=== PATIENT | female | born 1960 | race African-American/Black ===

== ENCOUNTER 2023-07-25 04:23 | Inpatient (IN) | payer OTHER ==
[2023-07-25] VITALS (8 sets, daily range): BP systolic 122–146; BP diastolic 49–128; PULSE 81–188; RESP 10–42; TEMP 97.8–98; O2SAT 98
[~2023-07-25] VITALS: Ht 162.6 cm; Wt 69.9 kg
[2023-07-25] MEDS: CEFTRIAXONE 1GM PREMIX 50 ML IV ONE (04:56)
[2023-07-25 05:20] LABS: HEMATOCRIT. 34.7 % (36.0-48.0); HEMOGLOBIN. 11.2 g/dL (12.0-16.0); MEAN CORPUSCULAR HEMOGLOBIN 30.2 pg (28.0-32.0); MEAN CORPUSCULAR HGB CONC 32.4 g/dL (31.0-37.0); MEAN CORPUSCULAR VOLUME 93.2 fL (81.0-99.0); MEAN PLATELET VOLUME 10.5 fl (7.4-10.4); PLATELET 86 x1000/uL (130-400); RED BLOOD CELL COUNT 3.72 mill/uL (4.2-5.4); RED CELL DISTRIBUTION WIDTH 17.2 % (11.6-14.6); WHITE BLOOD COUNT 16.7 x1000/uL (4.5-11.0)
[2023-07-25 05:30] LABS: INR 3.3; PROTHROMBIN TIME 33.8 sec (9.6-11.0)
[2023-07-25 05:37] LABS: DIFFERENTIAL COMMENT 1
[2023-07-25 05:59] LABS: BG BASE EXCESS -10.5 mmol/L (-2.0-2.0); BG CARBOXYHEMOGLOBIN 0.4 % (0.5-1.5); BG DEOXYHEMOGLOBIN 0.4 % (0.0-5.0); BG FRACTION INSPIRED OXYGEN 60; BG METHEMOGLOBIN 0.5 % (0.0-1.5); BG OXYGEN SATURATION 99.6 % (92.0-98.5); BG OXYHEMOGLOBIN 98.7 % (94.0-97.0); BG PCO2 27.4 mmHg (35.0-45.0); BG PH 7.325 (7.350-7.450); BG PO2 223.4 mmHg (75.0-100.0); BG SAMPLE SITE RIGHT RADIAL; BG TOTAL HEMOGLOBIN 12.7 g/dL (12.0-18.0); BG TOTAL RESPIRATORY RATE 29 b/min; BG VENT MODE MASK - BIPAP
[2023-07-25 06:08] LABS: LACTIC ACID 10.5 mmol/L (0.4-2.0)
[2023-07-25 06:30] LABS: NUCLEATED RED BLOOD CELLS 1 /100 WBC; PLATELET ESTIMATE DECREASED
[2023-07-25 06:31] LABS: ANISOCYTOSIS 2+
[2023-07-25] MEDS: AZITHROMYCIN 500MG/250ML 250 ML IV NR (07:49)
[2023-07-25 08:24] LABS: ALANINE AMINOTRANSFERASE 506 IU/L (10-49); ALBUMIN 3.7 g/dL (3.2-4.8); ASPARTATE AMINOTRANSFERASE 615 IU/L (<34); BILIRUBIN TOTAL 13.7 mg/dL (0.1-1.0); CALCIUM 9.1 mg/dL (8.7-10.4); CARBON DIOXIDE 11 mEq/L (21-32); CHLORIDE 87 mEq/L (98-107); CREATININE 1.1 mg/dL (0.6-1.0); GLUCOSE 127 mg/dL (70-105); PROTEIN TOTAL 7.2 g/dL (6.0-8.3); UREA NITROGEN BLOOD 56 mg/dL (9-23)
[2023-07-25] MEDS ORDERED: DOCUSATE SODIUM 100MG CAPSULE PO PRN (08:30)
[2023-07-25] MEDS ORDERED: VANCOMYCIN 1.5GM/250ML IV NR (08:30)
[2023-07-25] MEDS ORDERED: GUAIFENESIN 200MG/10ML SUGAR FREE UDC PO PRN (08:30)
[2023-07-25] MEDS ORDERED: ACETAMINOPHEN 650MG/20.3ML UDC GT PRN (08:30)
[2023-07-25] MEDS ORDERED: MAGNESIUM/ALUMINUM HYDROXIDE/SIMETHICONE 30ML UDC PO PRN (08:30)
[2023-07-25] MEDS ORDERED: CLONIDINE 0.1MG TABLET PO PRN (08:30)
[2023-07-25] MEDS ORDERED: IPRATROPIUM/ALBUTEROL 0.5-3(2.5)MG/3ML NEB HHN PRN (08:30)
[2023-07-25] MEDS ORDERED: MEROPENEM 1G/100ML 100 ML IV NR (08:30)
[2023-07-25 08:48] LABS: POTASSIUM 6.3 mEq/L (3.5-5.1); SODIUM 120 mEq/L (136-145); TROPONIN I HIGH SENSITIVITY 75 ng/L (3.0-34)
[2023-07-25] MEDS: SODIUM POLYSTYRENE SULFONATE 15 G/60 ML BOT PO ONE (11:56)
[2023-07-25] MEDS: VANCOMYCIN 1.5GM/250ML IV NR (11:56)
[2023-07-25] MEDS: SODIUM BICARBONATE 8.4% 1 MEQ/ML 50ML SYR IV NR (11:58)
[2023-07-25] MEDS: SODIUM CHLORIDE 0.9% 1,000 ML IV ONE (11:59)
[2023-07-25] MEDS: DEXTROSE 50% WATER 50ML SYRINGE IV NR (11:59)
[2023-07-25] MEDS: INSULIN REGULAR (HUMULIN R) 300UNITS/3ML VIAL IV NR (12:00)
[2023-07-25] MEDS: CALCIUM GLUCONATE 100MG/ML 10ML VIAL IV NR (13:01)
[2023-07-25] MEDS: MEROPENEM 1G/100ML 100 ML IV NR (13:06)
[2023-07-25] MEDS: IPRATROPIUM/ALBUTEROL 0.5-3(2.5)MG/3ML NEB HHN SCH (13:08)
[2023-07-25] MEDS ORDERED: SODIUM CHLORIDE 0.9% 1,000 ML IV NR (13:15)
[2023-07-25 13:52] LABS: CREATINE KINASE MB FRACTION 4.9 ng/mL (0.5-3.6); URIC ACID 7.5 mg/dL (3.1-7.8)
[2023-07-25] MEDS ORDERED: MEROPENEM 1G/100ML 100 ML IV SCH ×2 (14:00→22:00)
[2023-07-25 15:16] LABS: BG BASE EXCESS -12.1 mmol/L (-2.0-2.0); BG CARBOXYHEMOGLOBIN 0.4 % (0.5-1.5); BG DEOXYHEMOGLOBIN 0.8 % (0.0-5.0); BG FRACTION INSPIRED OXYGEN 100; BG HCO3 ACT 13.6 mmol/L (22.0-26.0); BG METHEMOGLOBIN 0.4 % (0.0-1.5); BG OXYGEN SATURATION 99.2 % (92.0-98.5); BG OXYHEMOGLOBIN 98.4 % (94.0-97.0); BG PCO2 30.4 mmHg (35.0-45.0); BG PH 7.268 (7.350-7.450); BG PO2 164.6 mmHg (75.0-100.0); BG SAMPLE SITE RIGHT RADIAL; BG TOTAL HEMOGLOBIN 11.9 g/dL (12.0-18.0); BG VENT MODE MASK - NRB
[2023-07-25] MEDS ORDERED: DEXTROSE 50% WATER 50ML SYRINGE IV PRN (15:30)
[2023-07-25 16:54] LABS: CALCIUM 9.3 mg/dL (8.7-10.4); CREATININE 1.2 mg/dL (0.6-1.0)
[2023-07-25 17:00] LABS: POTASSIUM 6.2 mEq/L (3.5-5.1)
[2023-07-25] MEDS: PANTOPRAZOLE SODIUM 40 MG/VIAL IV SCH (17:21)
[2023-07-25 17:40] LABS: HEPATITIS B SURFACE ANTIGEN NEGATIVE (Negative); HEPATITIS C AB NON REACTIVE (Neg) (Negative)
[2023-07-26] MEDS ORDERED: VANCOMYCIN 1G PREMIX 200 ML IV SCH ×2 (09:00→12:00)
== END 2023-07-25 18:38 | DRG 871 ==
LOC: ER 04:36 → 5EST 06:34
PROVIDERS: ADMIT Internal Medicine; ATTEND Internal Medicine
PROC: 5A09357 Assistance with Respiratory Ventilation, Less than 24 Consecutive Hours, Continuous Positive Airway Pressure (ICD-10-PCS; principal; 2023-07-25)
DX: A41.9 Sepsis, unspecified organism (principal); I21.4 Non-ST elevation (NSTEMI) myocardial infarction; J96.00 Acute respiratory failure, unspecified whether with hypoxia or hypercapnia; J18.9 Pneumonia, unspecified organism; D68.9 Coagulation defect, unspecified; E87.1 Hypo-osmolality and hyponatremia; E87.20 Acidosis, unspecified; N17.9 Acute kidney failure, unspecified; E87.5 Hyperkalemia; D69.6 Thrombocytopenia, unspecified; D64.9 Anemia, unspecified; E80.6 Other disorders of bilirubin metabolism; R74.01 Elevation of levels of liver transaminase levels; C53.9 Malignant neoplasm of cervix uteri, unspecified; E86.0 Dehydration; Z66 Do not resuscitate
CPT/HCPCS: 36415; 36600; 71045; 80048; 80053; 82150; 82375; 82533; 82550; 82553; 82805; 83036; 83605; 83880; 83930; 84145; 84484; 84550; 85025; 85379; 86705; 86850; 86900; 87340; 93005; 93970; 94660; 99291; C9113; J0456; J0610; J0696; J1815; J2185; J3370; J3490